=== PATIENT | female | born 1965 | race Caucasian/White ===

== ENCOUNTER → 2020-10-17 | Outpatient (CLI) | payer BC ==
[2013-10-11 10:22] VITALS: BP 133/93
[~2020-10-17] MED LIST: GABA600T7 PO; HYDR-2761 PO; LEVO50TA5 PO; METF500T16 PO; MONT10TA49 PO; SEMA1PEN3 SQ; SPIR100T4 PO
--- NOTE | 2020-10-20 15:21 | RAD ---
EXAM: MRI LEFT ANKLE/HINDFOOT DATE: 10/17/2020 11:31 AM CLINICAL INDICATION: Reason: rupture of left achilles tendon, initial encounter / Spl. Instructions: surgery scheduled 10/21 / History: COMPARISON: None. TECHNIQUE: Multiplanar, multisequence MR imaging of the left ankle was performed without IV contrast. FINDINGS: There is a full-thickness tear of the Achilles tendon, approximately 5.5 cm from the attachment with 2 cm gap between the principal components. There is herniation of the associated fat between the tend on fragments. Moderate edema is seen in this region. There is thickening of the remainder of the Achi lles tendon suggest background of tendinosis. There is mild increased signal and thickening of the peroneus longus posterior to the lateral malleol us, tendinosis. Peroneus brevis is intact. The medial flexor tendons at the ankle and extensor tendon s are intact, grossly normal in signal and morphology. No ankle joint or subtalar joint effusion. T1 marrow signal is preserved. No fracture or osteonecrosi s. Mild cystic change at the Achilles insertion. Mild thickening and increased signal of the plantar fascia at the calcaneal attachment. Ligaments: Medial deltoid stabilizers are intact. Lateral collateral stabilizing ligaments including the anterior talofibular ligament are intact. Anterior and posterior tibiofibular ligaments are intact. Spring ligament intact. Ligaments of the Sinus Tarsi are intact. Spaces/Places: Sinus Tarsi within normal limits, without mass lesion or edema pattern. Tarsal tunnel within normal limits, without mass lesion. Articular Cartilage/joint line: Articular cartilage of the ankle joint and subtalar joints are grossly intact. IMPRESSION: 1. Full-thickness tear Achilles tendon, approximately 5.5 cm from the attachment, with 2 cm gap betw een the principal components. Background of Achilles tendinosis suspected. 2. Mild peroneus longus tendinosis posterior to the lateral malleolus. 3. Thickening and increased signal of the plantar fascia, can be correlated with clinical manifestat ions of plantar fasciitis Electronically signed by: Dima Call MD (10/20/2020 3:19 PM) [id number]
== END ==
LOC: MRI 11:31
PROVIDERS: ATTEND Podiatrist
DX: S86.012A Strain of left Achilles tendon, initial encounter (principal); M25.472 Effusion, left ankle; M25.475 Effusion, left foot; X58.XXXA Exposure to other specified factors, initial encounter; Y93.89 Activity, other specified; Y92.89 Other specified places as the place of occurrence of the external cause; Y99.8 Other external cause status
CPT/HCPCS: 73721

== ENCOUNTER 2020-10-21 11:18 | Day surgery (SDC) | payer BC ==
[~2020-10-21] VITALS: Ht 165.1 cm; Wt 69.0 kg
[~2020-10-21 11:18] MED LIST changes: -GABA600T7 PO; -HYDR-2761 PO; +IV RINGERS,LACTATED 1000ML 1,000 ML IV SCH; +MORPHINE SULFATE 2 MG/ML INJ. IVP PRN; +PROCHLORPERAZINE 10 MG/2 ML VIAL. IVP PRN; +ceFAZolin SODIUM IV Push 1 GM VIAL. IVP PRN; +fentaNYL PF VIAL 100 MCG/2 ML VIAL IVP PRN
[2020-10-21 12:21] VITALS: BP 137/76
--- NOTE | 2020-10-21 12:24 | PDOC1 ---
History and Physical Date of Admission Date of Admission DATE: 10/21/20 TIME: 12:16 Identification/Chief Complaint Chief Complaint Left Achilles rupture Source Source: Chart review, Patient History of Present Illness History of Present Illness Patient 55-year-old female with past medical history DM2, hypothyroidism, on hormone replacement therapy, who presents to outpatient surgical clinic for repair of ruptured left Achilles tendon. She states that about 1 week ago she heard an audible "pop"with pain and difficulty ambulating since that time. She was diagnosed with a ruptured Achilles tendon. She was seen by Dr. Mills on outpatient basis and scheduled for surgical repair today. Currently she denies any fever, nausea, or significant pain. Past Medical History Past Medical History DM2, hypothyroidism Past Surgical History Past Surgical History Hysterectomy, tubal ligation, uterine ablation Family History Family History DM2, hypothyroidism Social History Smoke: No ALCOHOL: occassional Drugs: None Current Medications Current Medications Current Medications Fentanyl Citrate (Fentanyl 2ml Vial) 25 mcg PRN Q5MIN PRN IVP MILD PAIN 1-3; Start 10/21/20 at 06:00; Stop 10/22/20 at 05:59 Fentanyl Citrate (Fentanyl 2ml Vial) 50 mcg PRN Q5MIN PRN IVP MODERATE PAIN 4- 6; Start 10/21/20 at 06:00; Stop 10/22/20 at 05:59 Morphine Sulfate (Morphine Sulfate) 1 mg PRN Q10MIN PRN IVP SEVERE PAIN 7-10; Start 10/21/20 at 06:00; Stop 10/22/20 at 05:59 Ringer's Solution 1,000 ml @ 30 mls/hr Q24H IV ; Start 10/21/20 at 06:00; Stop 10/21/20 at 17:59 Hydromorphone HCl (Dilaudid) 0.5 mg PRN Q10MIN PRN IVP SEVERE PAIN 7-10, 2nd CHOICE; Start 10/21/20 at 06:00; Stop 10/22/20 at 05:59 Prochlorperazine Edisylate (Compazine) 5 mg PACU PRN PRN IVP NAUSEA, MRX1; Start 10/21/20 at 06:00; Stop 10/22/20 at 05:59 Cefazolin Sodium (Ancef) 1 gm 1X PREOP PRN IVP PRIOR TO PROCEDURE; Start 10/21/20 at 06:00; Stop 10/21/20 at 16:00 Active Scripts Active Reported Spironolactone 100 Mg Tablet 100 Mg PO DAILY Ozempic (Semaglutide) 1 Mg/0.75 Ml Pen.injctr 1 Mg SQ WEEKLY Metformin Hcl 500 Mg Tablet 1,000 Mg PO BIDWMEALS Levothyroxine Sodium 50 Mcg Tablet 50 Mcg PO DAILYAC Allergies Allergies: Coded Allergies: No Known Drug Allergies (Unverified , 10/20/20) ROS Review of System GENERAL: No history of weight change, weakness or fevers. SKIN: No bruising, hair changes or rashes. EYES: No blurred, double or loss of vision. NOSE AND THROAT: No history of nosebleeds, hoarseness or sore throat. HEART: Denies chest pain, denies palpitations. LUNGS: Denies cough, hemoptysis, wheezing or shortness of breath. GASTROINTESTINAL: Denies nausea, vomiting, abdominal pain. GENITOURINARY: Denies dysuria, frequency, urgency, hematuria. NEUROLOGIC: Denies history of numbness, tingling, tremor or weakness. PSYCHIATRIC: Denies anxiety, denies depression. ENDOCRINE: No history of heat or cold intolerance, polyuria or polydipsia. EXTREMITIES: Denies muscle weakness, joint pain, pain on walking or stiffness. Physical Exam Physical Exam General: Alert, Oriented X3, Cooperative, No acute distress HEENT: PERRLA, EOMI Lungs: Clear to auscultation, Normal air movement Heart: RRR, no murmurs Cardiovascular: S1, S2 Abdomen: Normal bowel sounds, Soft, No tenderness Extremities: Left lower extremity wrapped in bandage with dressings clean/dry/intact. Right lower extremity without clubbing, or cyanosis. Skin: No rashes, No significant lesion Neuro: Normal speech, Normal tone, Sensation intact Psych/Mental Status: Mental status NL, Mood NL Images Images PATIENT: JORJE BOYKIN ACCOUNT: [id number] : 1965 LOCATION: MRI AGE: 55 SEX: F EXAM STATUS: REG CLI ORD. PHYSICIAN: TIKI MILLS DPM REASON: rupture of left achilles tendon, initial encounter PROCEDURE: LOWER EXT JOINT WO LT EXAM: MRI LEFT ANKLE/HINDFOOT DATE: 10/17/2020 11:31 AM CLINICAL INDICATION: Reason: rupture of left achilles tendon, initial encounter / Spl. Instructions: surgery scheduled 10/21 / History: COMPARISON: None. TECHNIQUE: Multiplanar, multisequence MR imaging of the left ankle was performed without IV contrast. FINDINGS: There is a full-thickness tear of the Achilles tendon, approximately 5.5 cm from the attachment with 2 cm gap between the principal components. There is herniation of the associated fat between the tendon fragments. Moderate edema is seen in this region. There is thickening of the remainder of the Achilles tendon suggest background of tendinosis. There is mild increased signal and thickening of the peroneus longus posterior to the lateral malleolus, tendinosis. Peroneus brevis is intact. The medial flexor tendons at the ankle and extensor tendons are intact, grossly normal in signal and morphology. No ankle joint or subtalar joint effusion. T1 marrow signal is preserved. No fracture or osteonecrosis. Mild cystic change at the Achilles insertion. Mild thickening and increased signal of the plantar fascia at the calcaneal attachment. Ligaments: Medial deltoid stabilizers are intact. Lateral collateral stabilizing ligaments including the anterior talofibular ligament are intact. Anterior and posterior tibiofibular ligaments are intact. Spring ligament intact. Ligaments of the Sinus Tarsi are intact. Spaces/Places: Sinus Tarsi within normal limits, without mass lesion or edema pattern. Tarsal tunnel within normal limits, without mass lesion. Articular Cartilage/joint line: Articular cartilage of the ankle joint and subtalar joints are grossly intact. IMPRESSION: 1. Full-thickness tear Achilles tendon, approximately 5.5 cm from the attachment, with 2 cm gap between the principal components. Background of Achilles tendinosis suspected. 2. Mild peroneus longus tendinosis posterior to the lateral malleolus. 3. Thickening and increased signal of the plantar fascia, can be correlated with clinical manifestations of plantar fasciitis VTE Prophylaxis Ordered VTE Prophylaxis Devices: Yes VTE Pharmacological Prophylaxi: No Assessment/Plan Assessment/Plan Left Achilles tendon rupture DM2 Hypothyroidism Plan: Received preop prophylactic antibiotics. Scheduled for outpatient surgical repair of ruptured left Achilles tendon today. Currently denies any pain. Barring any surgical complications patient will likely discharge home today and follow-up with Dr. Mills and her PCP. Justifications for Admission Other Justification MERARI WOLF MD Oct 21, 2020 12:24
[2020-10-21] MEDS ORDERED: LIDOCAINE 1% PF 5 ML VIAL. ONE (12:51)
[2020-10-21] MEDS ORDERED: PROPOFOL 10 MG/ML (20ML) VIAL. IV ONE (12:51)
[2020-10-21] MEDS ORDERED: MIDAZOLAM HCL/PF 2 MG/2 ML VIAL. ONE (12:52)
[2020-10-21] MEDS ORDERED: ROCURONIUM 50 MG/5 ML VIAL. ONE (12:52)
[2020-10-21] MEDS ORDERED: fentaNYL PF VIAL 250 MCG/5 ML VIAL ONE (12:52)
[2020-10-21] MEDS ORDERED: GLYCOPYRROLATE 1 MG/5 ML VIAL. ONE (12:55)
[2020-10-21] MEDS ORDERED: NEOSTIGMINE METHYLSULFATE 5 MG/5 ML SYRINGE. ONE (12:56)
[2020-10-21] MEDS ORDERED: BUPIVACAINE-EPI 0.25%-1:200000 MPF 30 ML VIAL. ONE (13:26)
[2020-10-21] MEDS ORDERED: BUPIVACAINE MPF 0.25% 30 ML VIAL. ONE (13:26)
[2020-10-21] MEDS ORDERED: POVIDONE-IODINE 10% TOPICAL OINTMENT 28GM TUBE. TP ONE (15:21)
--- NOTE | 2020-10-21 15:57 | PDOC4 ---
OPERATIVE NOTE Date: Date: Oct 21, 2020 Pre-Op Diagnosis: Complete rupture of the left Achilles tendon approximately 3 cm proximal to the ankle joint Post-Op Diagnosis: Same as above Procedure Performed: Primary left Achilles tendon repair Surgeon: Tiki Mills D.P.M. Anesthesia Type: General Blood Loss: 5 cc Specimans Obtained: None Findings: Complete rupture of the Achilles tendon, approximately 3 cm proximal to the ankle joint. Minimal hematoma but mopped ends Achilles stumps. Preoperatively, positive Joy's test. After repair, negative Joy's test. Complications: None TIKI MILLS [facility] Oct 21, 2020 15:57
[2020-10-21] MEDS ORDERED: DEXTROSE 50% 25 GM / 50ML DISP.SYRIN. IV PRN (16:00)
[2020-10-21] MEDS ORDERED: ONDANSETRON PF 4 MG/2 ML VIAL. IVP PRN (16:00)
[2020-10-21] MEDS ORDERED: oxyCODONE/APAP 5/325 1 TAB TABLET PO ONE (16:00)
[2020-10-21] MEDS ORDERED: HYDROmorphone 2 MG/ML VIAL ONE (16:00)
[2020-10-21] MEDS ORDERED: POLYETHYLENE GLYCOL 3350 17 GM PACKET. PO PRN (16:00)
[2020-10-21] MEDS ORDERED: ACETAMINOPHEN 325 MG TABLET. PO ONE (16:00)
[2020-10-21] MEDS: HYDROmorphone 2 MG/ML VIAL IVP PRN ×4 (16:02→16:30)
[2020-10-21] MEDS ORDERED: GABA600T7 PO (16:07)
[2020-10-21] MEDS ORDERED: HYDR-2761 PO (16:07)
[2020-10-21] MEDS ORDERED: GABAPENTIN 100 MG CAPSULE. PO ONE (16:15)
[2020-10-21] MEDS ORDERED: HYDROcodone/APAP 5/325MG 1 TAB TABLET PO ONE (16:15)
--- NOTE | 2020-10-21 16:32 | RAD ---
Exam: Left ankle 3 views INDICATION: Post surgery TECHNIQUE: Frontal, lateral and oblique views of the left ankle Comparisons: None FINDINGS: Overlying splint material limits the evaluation of fine osseous detail. Bone mineralization is normal. No acute or healed fractures. Joint spaces are well-maintained. Soft t issues not well evaluated IMPRESSION: Several material limits the fine osseous detail. No acute displaced fracture identified. Electronically signed by: George Pablo MD (10/21/2020 4:29 PM) CHEL
[2020-10-21] MEDS ORDERED: fentaNYL PF VIAL 100 MCG/2 ML VIAL ONE (16:49)
[2020-10-21] MEDS: fentaNYL PF VIAL 100 MCG/2 ML VIAL IVP PRN ×2 (16:53→17:16)
[2020-10-21 17:25] VITALS: BP 105/65
--- NOTE | 2020-10-21 17:31 | PDOC4 ---
OPERATIVE NOTE Date: Date: Oct 21, 2020 Pre-Op Diagnosis: Complete rupture of the left Achilles tendon, approximately 3 cm proximal to the ankle joint. Post-Op Diagnosis: Same as above Procedure Performed: Left direct/primary Achilles tendon repair Surgeon: Tiki Mills DPM Anesthesia Type: General Blood Loss: 5 cc Specimans Obtained: None Findings: Complete rupture of the left Achilles tendon at the level of 3 cm proximal to the ankle joint. Preoperatively, positive Joy's test was noted. After surgery, negative Joy's test was noted. Complications: None Operative Note: Under mild sedation, patient was brought into the operating room and placed on supine position on the gurney. A standard timeout was performed to confirm patient's identity, procedure and procedure site. Following IV antibiotics and general anesthesia, a well-padded left thigh tourniquet was applied. Then patient was transferred to the operating table in a prone position with all the bony anatomies well-padded and protected. The left lower extremity was then scrubbed, prepped and draped using aseptic techniques. Using intraoperative x- ray, the ankle joint, posterior calcaneal tuber were marked. The rupture site was measured and marked at 3 cm proximal from the ankle joint. Then the left lower extremity was exsanguinated and pressure was set at 250 millimercury. The attention was directed to the posterior Achilles tendon near the rupture site through palpation and measurement preoperatively. A straight linear incision measured approximately 2 to 3 cm was placed over the rupture site. The incision was carried deep with care to protect and retract all the neurovascular bundles to the layer of peritenon. At this time, the 2 stumps of the Achilles tendon were visualized with mopped ends and mild hematoma. The gap was measured approximately 2-3 cm. Using an Allis clamp, the proximal Achilles stump was pulled into the incision site distally. Blunt dissection with a combination of straight hemostat, malleable were used 2 separate the peritenon from the Achilles tendon proximally. Then an Arthrex PARS jig was introduced to the proximal Achilles stump within the peritenon. The jig was carefully advanced proximally without any tendon or peritenon bunching. Then following the standard protocol, traversing 5 xpercutaneous pins were placed from medial to lateral followed by #2 FiberWire percutaneously introduced through the Achilles tendon substance proximally. Then the jig with was drawn distally and then the sutures were pulled into the surgical wound within the peritenon. Individual FiberWire was tested purchasing the proximal tendon stump adequately. 1 locking suture was achieved on both ends of the proximal Achilles tendon. At this time, satisfactory FiberWire purchase the proximal tendon stump was noted. Two full- thickness linear skin incisions, proximally 1 cm, were placed immediately medial and lateral at the Achilles insertion site. The incision was carried deep to the layer of periosteum layer with blunt dissection and care to retract and protect all the neurovascular bundles. Within these stab incisions, a 3.5 mm d rill was advanced into the calcaneal tuber with care to not to violate or penetrate subtalar joint or plantar calcaneal cortex. The drill holes were tapped with 4.75 mm tap to prepare for swivel lock anchors. Using a banana suture lasso, the proximal pars sutures were passed through the distal Achilles stump out of the distal stab incisions. two 4.75 mm swivel lock anchors were used to tension and secure the proximal pars fiber wires with ankle held near 35 degrees plantarly where the two Achilles stumps were well opposed. The extra fiber wires were cut and intraoperative palpation was negative for swivel lock anchor prominence posteriorly or plantarly. The surgical sites were irrigated with copious saline solution. The mopped ends at the rupture site were remodeled and then reapproximated with epitendinous suture, 3-0 Vicryl with care to not to compromise the FiberWire construct. The procedure site was anesthetized with 20 cc of 0.25% Marcaine plain. The skin was closed in layers with 4-0 Monocryl and 3-0 nylon. The procedure site was dressed with Betadine paint, and Xeroform, 4 x 4, ABD and immobilized in a well-padded Padron compression splint with a sugar tong while the ankle was held at gravity equinus. The tourniquet was released and adequate digital perfusion was noted. Patient tolerated the procedure and anesthesia well with neurovascular status intact and was transferred to PACU for continued recovery. Pending 3 view left ankle x-ray. TIKI MILLS DPM Oct 21, 2020 17:31
[2020-10-21] MEDS ORDERED: GABAPENTIN 100 MG CAPSULE. PO SCH (21:00)
[2020-10-22] MEDS ORDERED: SENNOSIDES/DOCUSATE 8.6/50MG TABLET. PO SCH (09:00)
== END 2020-10-21 17:55 | disposition home or self-care (01) ==
LOC: SURG 11:18
PROVIDERS: ATTEND Podiatrist
DX: S86.012A Strain of left Achilles tendon, initial encounter (principal); E11.9 Type 2 diabetes mellitus without complications; E03.9 Hypothyroidism, unspecified; Z79.899 Other long term (current) drug therapy; Z90.710 Acquired absence of both cervix and uterus; Z98.51 Tubal ligation status; Z98.890 Other specified postprocedural states; X58.XXXA Exposure to other specified factors, initial encounter; Y93.89 Activity, other specified; Y92.89 Other specified places as the place of occurrence of the external cause
CPT/HCPCS: 27650; 73610; 82962; A4209; A4930; A6253; A6449; A6450; C1713; J0690; J0780; J1170; J2250; J2704; J2710; J3010; J3490

== ENCOUNTER → 2021-02-03 | Outpatient (CLI) | payer BC ==
[~2021-02-03] MED LIST changes: +GABA600T7 PO; +HYDR-2761 PO; -IV RINGERS,LACTATED 1000ML 1,000 ML IV SCH; -MORPHINE SULFATE 2 MG/ML INJ. IVP PRN; -PROCHLORPERAZINE 10 MG/2 ML VIAL. IVP PRN; -ceFAZolin SODIUM IV Push 1 GM VIAL. IVP PRN; -fentaNYL PF VIAL 100 MCG/2 ML VIAL IVP PRN
== END ==
LOC: SPEC 12:08
PROVIDERS: ATTEND Podiatrist
DX: L89.620 Pressure ulcer of left heel, unstageable (principal)
CPT/HCPCS: 87071; 87075

== ENCOUNTER → 2021-02-18 | Outpatient (CLI) | payer BC ==
[~2021-02-18] MED LIST changes: +GADOTERATE 7.5 MMOL/15ML VIAL. IVP ONE
[2021-02-18 08:43] LABS: CREATININE 0.8 mg/dL (0.6-1.0); GFR 74.2
--- NOTE | 2021-02-18 11:42 | RAD ---
MRI STUDY OF THE LEFT ANKLE WITH AND WITHOUT CONTRAST Clinical indications: Draining wound from left ankle. Status post left Achilles tendon repair. TECHNIQUE: Noncontrast MRI sequences of the left ankle were performed in all 3 planes. A total of 12 cc of Clariscan was given intravenously. COMPARISON: Radiographic study of the left calcaneus dated February 03, 2021. FINDINGS: A paramagnetic susceptibility artifact of the calcaneus related to 2 surgical screws of the calcaneus secondary to Achilles tendon reattachment/repair. The attachment of the distal Achilles te ndon to the posterior aspect of the calcaneus remains intact. Just proximal to this attachment, there is edema and thickening of the distal Achilles tendon. There is a large tear of the proximal Rios s tendon defect measuring 4.3 cm vertically. There is edema of the musculotendinous junction of the A chilles tendon. The actual proximal extent of this edema cannot be completely seen in this study. The re is a 16 mm in vertical dimension fluid collection within the lower aspect of the defect with perip heral rim enhancement consistent with an abscess. There is overlying soft tissue edema to the skin in this area. No T1 marrow signal abnormality or T2 bone marrow edema or T1 cortical erosion is seen. T herefore, no osteomyelitis is seen. No fracture is seen. There is mild stress reaction bone marrow [place] of the posterior superior aspect of the calcaneus. Plantar aponeurosis is intact with edema. Sinu s tarsi is normal and talocalcaneal and cervical ligaments are intact. Small mortise ankle joint effu aniceto is seen. No osteochondral abnormality of the dome of talus or the tibial plafond is evident. The distal interosseous ligament and anterior/posterior tibiofibular ligaments are intact. There is a te ar of the anterior talofibular ligament. The posterior talofibular ligament is intact. The deltoid li gament and calcaneofibular ligament and spring ligament are intact. The flexor and peroneal and flexo r and extensor tendons are intact and no tenosynovitis is seen. IMPRESSION: Large recurrent Achilles tendon tear with chronic tendinopathy and edema. Apparent 1.6 cm abscess within the surgical defect cavity given history of wound. Anterior talofibular ligament tear. Electronically signed by: Severiano Arana MD (02/18/2021 11:40 AM) [place] [id number]
== END ==
LOC: MRI 11:10
PROVIDERS: ATTEND Podiatrist
DX: T81.89XD Other complications of procedures, not elsewhere classified, subsequent encounter (principal); S93.492A Sprain of other ligament of left ankle, initial encounter; X58.XXXD Exposure to other specified factors, subsequent encounter; X58.XXXA Exposure to other specified factors, initial encounter; Y93.89 Activity, other specified; Y92.89 Other specified places as the place of occurrence of the external cause; Y99.8 Other external cause status
CPT/HCPCS: 36415; 73723; 82565; A9575

== ENCOUNTER → 2021-02-20 | Outpatient (CLI) | payer BC ==
[~2021-02-20] MED LIST changes: -GADOTERATE 7.5 MMOL/15ML VIAL. IVP ONE
== END ==
LOC: SPEC 12:44
PROVIDERS: ATTEND Podiatrist
DX: T81.89XD Other complications of procedures, not elsewhere classified, subsequent encounter (principal); S86.012D Strain of left Achilles tendon, subsequent encounter; X58.XXXD Exposure to other specified factors, subsequent encounter
CPT/HCPCS: 87071; 87075

== ENCOUNTER 2021-03-31 06:00 | Day surgery (SDC) | payer BC ==
[~2021-03-31] VITALS: Ht 165.1 cm; Wt 67.0 kg
[~2021-03-31 06:00] MED LIST changes: +HYDROmorphone 2 MG/ML INJ. IVP PRN; +IV RINGERS,LACTATED 1000ML 1,000 ML IV SCH; +MORPHINE SULFATE 2 MG/ML INJ. IVP PRN; +PROCHLORPERAZINE 10 MG/2 ML VIAL. IVP PRN; +fentaNYL PF VIAL 100 MCG/2 ML VIAL IVP PRN
[2021-03-31] MEDS ORDERED: PROPOFOL 10 MG/ML (20ML) VIAL. IV ONE (07:00)
[2021-03-31] MEDS ORDERED: LIDOCAINE 2% PF 5 ML VIAL. ONE (07:00)
[2021-03-31] MEDS ORDERED: ceFAZolin 2GM PREMIX 2 GM/50 ML BAG IV ONE (07:00)
[2021-03-31] MEDS ORDERED: fentaNYL PF VIAL 100 MCG/2 ML VIAL ONE ×2 (07:01→10:04)
[2021-03-31] MEDS ORDERED: MIDAZOLAM HCL/PF 2 MG/2 ML VIAL. ONE (07:01)
[2021-03-31] MEDS ORDERED: ONDANSETRON PF 4 MG/2 ML VIAL. ONE (07:02)
[2021-03-31] MEDS ORDERED: SEVOFLURANE 61 TO 120 MINUTES. IH ONE (07:02)
[2021-03-31] MEDS ORDERED: DEXAMETHASONE SOD PHOS 4 MG/ML VIAL ONE (07:02)
[2021-03-31] MEDS ORDERED: PHENYLEPHRINE 10 MG/ML VIAL. ONE (07:10)
[2021-03-31] MEDS ORDERED: INSULIN LISPRO 100 UNIT/ML 3ML VIAL for OP,RR ONLY. SQ PRN (07:15)
[2021-03-31] MEDS ORDERED: ROCURONIUM 50 MG/5 ML VIAL. ONE (07:38)
--- NOTE | 2021-03-31 07:55 | PDOC1 ---
History and Physical Date of Service: DOS: DATE: 03/31/21 TIME: 07:20 Chief Complaint: Chief Complain: Delayed surgical skin healing on the left ankle History of Present Illness: HPI: 55-year-old female with past medical history of diabetes mellitus type 2, hypertension, hypothyroidism who presents to outpatient surgery for a nonhealing surgical wound. Patient states that she had surgery on her left ankle sometime in December last year. Patient currently does not endorse any active pain or bleeding. Denies any fevers, chest pain, abdominal pain, diarrhea or polyuria or polydipsia. Last hemoglobin A1c she could member was 5.7 Allergies: Allergies: Coded Allergies: No Known Drug Allergies (Unverified , 03/31/21) Family History: Family History: Reviewed with no relevant findings in the chart Social History: Social History: Denies alcohol, tobacco or drug abuse. Current Medications: Current Medications Current Medications Fentanyl Citrate (Fentanyl 2ml Vial) 25 mcg PRN Q5MIN PRN IVP MILD PAIN 1-3; Start 03/31/21 at 06:00; Stop 04/01/21 at 05:59 Fentanyl Citrate (Fentanyl 2ml Vial) 50 mcg PRN Q5MIN PRN IVP MODERATE PAIN 4- 6; Start 03/31/21 at 06:00; Stop 04/01/21 at 05:59 Morphine Sulfate (Morphine Sulfate) 1 mg PRN Q10MIN PRN IVP SEVERE PAIN 7-10; Start 03/31/21 at 06:00; Stop 04/01/21 at 05:59 Ringer's Solution 1,000 ml @ 30 mls/hr Q24H IV Last administered on 03/31/21at 06:31; Start 03/31/21 at 06:00; Stop 03/31/21 at 17:59 Hydromorphone HCl (Dilaudid) 0.5 mg PRN Q10MIN PRN IVP SEVERE PAIN 7-10, 2nd CHOICE; Start 03/31/21 at 06:00; Stop 04/01/21 at 05:59 Prochlorperazine Edisylate (Compazine) 5 mg PACU PRN PRN IVP NAUSEA, MRX1; Start 03/31/21 at 06:00; Stop 04/01/21 at 05:59 Cefazolin Sodium/ Dextrose 50 ml @ 100 mls/hr 1X PREOP PRN IV PRIOR TO PROCEDURE; Start 03/31/21 at 06:00; Stop 03/31/21 at 18:00 Insulin Human Lispro (HumaLOG VIAL for OP,RR ONLY) 0-10 units PRN Q1HR PRN SQ PER PROTOCOL; Start 03/31/21 at 07:15; Stop 04/01/21 at 07:14 Active Scripts Active Reported Spironolactone 100 Mg Tablet 100 Mg PO DAILY Ozempic (Semaglutide) 1 Mg/0.75 Ml Pen.injctr 1 Mg SQ WEEKLY Metformin Hcl 500 Mg Tablet 1,000 Mg PO BIDWMEALS Levothyroxine Sodium 50 Mcg Tablet 50 Mcg PO DAILYAC ROS: Review of Systems Review of System REVIEW OF SYSTEMS: GENERAL: Denies weakness SKIN: No bruising, hair changes or rashes. EYES: No blurred, double or loss of vision. NOSE AND THROAT: No history of nosebleeds, hoarseness or sore throat. HEART: No history of palpitations, chest pain or shortness of breath on exertion. LUNGS: Denies cough, hemoptysis, wheezing or shortness of breath. GASTROINTESTINAL: Denies changes in appetite, nausea, vomiting, diarrhea or constipation. GENITOURINARY: No history of frequency, urgency, hesitancy or nocturia. NEUROLOGIC: Denies history of numbness, tingling, or tremor. PSYCHIATRIC: No history of panic, anxiety or depression. ENDOCRINE: No history of heat or cold intolerance, polyuria or polydipsia. EXTREMITIES: Denies joint pain, pain on walking or stiffness. Physical Exam: Vital Signs: Vital Signs Date Time Temp Pulse Resp B/P (MAP) Pulse Ox O2 Delivery O2 Flow Rate FiO2 03/31/21 06:29 98.1 111 20 147/93 100 98.1 Physcial Exam: General: Well developed, well nourished, no acute distress, well appearing HEENT: Pupils equally round and reactive to light, EOMI, no discharge, normal conjunctiva Neck: Supple, no nuchal rigidity, no JVD, trachea midline, no tenderness Cardiac: RRR, no murmurs, no gallops, no rubs Chest/Lungs: CTAB, no wheeze, no rhonchi, no crackles Abdomen: soft, non-distended, no guarding, no peritoneal signs, non-tender Back: No tenderness Extremities: no edema, pulses intact, non-tender,capillary refill <3 sec bilateral upper and lower extremities. Left lower extremity in dressings. Neuro: Alert and oriented x 4, no focal deficits, normal speech Labs: Labs: Laboratory Tests Test 03/31/21 06:29 Glucose (Fingerstick) 101 mg/dL (70-99) Laboratory Tests Test 03/31/21 06:29 Glucose (Fingerstick) 101 mg/dL (70-99) Images: Images PROCEDURE: LOWER EXT JOINT WO/W LEFT MRI STUDY OF THE LEFT ANKLE WITH AND WITHOUT CONTRAST Clinical indications: Draining wound from left ankle. Status post left Achilles tendon repair. TECHNIQUE: Noncontrast MRI sequences of the left ankle were performed in all 3 planes. A total of 12 cc of Clariscan was given intravenously. COMPARISON: Radiographic study of the left calcaneus dated February 03, 2021. FINDINGS: A paramagnetic susceptibility artifact of the calcaneus related to 2 surgical screws of the calcaneus secondary to Achilles tendon r eattachment/repair. The attachment of the distal Achilles tendon to the posterior aspect of the calcaneus remains intact. Just proximal to this attachment, there is edema and thickening of the distal Achilles tendon. There is a large tear of the proximal Achilles tendon defect measuring 4.3 cm vertically. There is edema of the musculotendinous junction of the Achilles tendon. The actual proximal extent of this edema cannot be completely seen in this study. There is a 16 mm in vertical dimension fluid collection within the lower aspect of the defect with peripheral rim enhancement consistent with an abscess. There is overlying soft tissue edema to the skin in this area. No T1 marrow signal abnormality or T2 bone marrow edema or T1 cortical erosion is seen. Therefore, no osteomyelitis is seen. No fracture is seen. There is mild stress reaction bone marrow edema of the posterior superior aspect of the calcaneus. Plantar aponeurosis is intact with edema. Sinus tarsi is normal and talocalcaneal and cervical ligaments are intact. Small mortise ankle joint effusion is seen. No osteochondral abnormality of the dome of talus or the tibial plafond is evident. The distal interosseous ligament and anterior/posterior tibiofibular ligaments are intact. There is a tear of the anterior talofibular ligament. The posterior talofibular ligament is intact. The deltoid ligament and calcaneofibular ligament and spring ligament are intact. The flexor and peroneal and flexor and extensor tendons are intact and no tenosynovitis is seen. IMPRESSION: Large recurrent Achilles tendon tear with chronic tendinopathy and edema. Apparent 1.6 cm abscess within the surgical defect cavity given history of wound. Anterior talofibular ligament tear. Electronically signed by: Severiano Arana MD (02/18/2021 11:40 AM) [id number] Assessment/Plan Assessment/Plan Patient will be taken to the OR today for left Achilles tendon abscess repair with Dr. Mckee. History of diabetes mellitus type 2 History of hypertension History of hypothyroidism Shay score of less than 0.1% Resume all home medications after surgery. Please call hospitalist service for any questions. Justifications for Admission Other Justification STEPHEN SWIFT MD Mar 31, 2021 07:55
[2021-03-31] MEDS ORDERED: BUPIVACAINE MPF 0.5% 30 ML VIAL. IJ ONE (08:07)
[2021-03-31] MEDS ORDERED: ePHEDrine PF IN SALINE 50 MG/10 ML SYRINGE. IV ONE (08:23)
[2021-03-31] MEDS ORDERED: BUPIVACAINE MPF 0.5% 30 ML VIAL. ONE (08:46)
[2021-03-31] MEDS ORDERED: BUPIVACAINE MPF 0.25% 30 ML VIAL. ONE (08:46)
--- NOTE | 2021-03-31 09:38 | PDOC4 ---
OPERATIVE NOTE Date: Date: Mar 31, 2021 Pre-Op Diagnosis: Diabetic foot ulcer, sterile abscess along the Achilles surgical site from prior repair, left leg Post-Op Diagnosis: Same as above Procedure Performed: Left Achilles tendon incision and drainage, retubularization with 2-0 Prolene, and primary closure of the skin Surgeon: Tiki Mills DPM Anesthesia Type: General anesthesia Blood Loss: 5 cc Specimans Obtained: Deep tissue culture before and after washout and sent for Gram stain, culture and sensitivity, aerobes and anaerobes Findings: Fragile skin envelope at the posterior Achilles wound site measures approximately 2 x 2 millimeter. Upon deep tissue exploration, there is no pocket of abscess, proximal tracking or undermining. However, around the exposed FiberWire that was superficial to the Achilles tendon, there was mild to moderate degenerated and inflammatory Achilles tendon tissue without significant liquefication or any purulence. After FiberWire removal, the Achilles tendon was found structurally sound without any gapping. Joy test was negative. Complications: None Operative Note: Under mild sedation, patient was brought into the operating room and placed on the operating table in the supine position. A formal timeout was performed to confirm patient's identity, procedure and procedure site. Following IV general anesthesia and preoperative antibiotics, a well-padded left thigh tourniquet was applied. Patient was then positioned prone on the operating table with all the osseous prominence well-padded. The left lower extremity was then prepped, scrubbed and draped using aseptic techniques. The left lower extremity was then exsanguinated and an pressure was inflated to 250 mmHg. Using intraoperative x-ray, the ankle level was identified at the Achilles level. Based on MRI findings, the heterogenicity along the Achilles tendon was found 2 cm proximal to ankle joint 1 cm distal to ankle joint. However clinically, the wound was measured at 3 cm proximal to the ankle joint. Upon manual exsanguination, minimal serous sanguinous fluid was noted from the inferior aspect of the skin wound. Then the incision was made just medial to the midline of the Achilles tendon, spending from 3 cm proximal to 2 cm distal relative to the ankle joint. The incision was made full-thickness. The peritenon/Achilles tendon was carefully identified and from the subcutaneous layer with a combination of sharp and blunt dissection with care to protect and retract all the neurovascular bundles. The Achilles tendon was also blunt elevated from the surrounding scar tissue with finger dissection. At this time, we noted the exposed fiber wires, that are superficial to the Achilles tendon was surrounded by softer, degenerated and yellow Achilles tendon tissue without any pocket of purulence or abscess. The Achilles tendon was also incised linearly and centrally to further investigate and visualize the FiberWire's., at this time, the sutures were found under minimal to no tension and therefore not providing any structural support or tension to the Achilles tendon. The sutures were removed in toto from the proximal distal extent of the surgical wound. Then additional wound inspection was negative for any suture material. Deep tissue culture was collected before washout and sent for Gram stain, aerobes and anaerobes, culture and sensitivity. The degenerated tissue was excised with a #15 blade and a rongeur. The surgical site was irrigated with 1 L of saline solution. Wound inspection was negative for any yellow or degenerated tissue, purulence, or abscess. Deep tissue culture was collected and sent for Gram stain, anaerobes, aerobes, culture and sensitivity. The Achilles tendon was retubularized with 2-0 Prolene. Per literature, Prolene is most innate and does not inflected inflammatory reactions. The running sutures were buried at the proximal and distal ends of the repair. Joy test was noted negative. The inflamed/fragile skin envelope at the chronic wound site was excised to healthy margin. To reduce to skin tension especially given the chronicity of the wound, hemiguard suture device was applied at the proximal incision site where the skin was found most fragile. Then the surgical skin margins were brought together with 2-0 nylon through the hemiguard device. Then 4 Monocryl and 4-0 nylon were used to reapproximate the skin under minimal tens ion. Tourniquet was deflated and adequate perfusion was noted to the skin flaps and wound margins. 5 cc of accorded percent Marcaine plain was infiltrated to the distal Achilles near the surgical site for postoperative anesthesia. The skin was dressed with Arthrex jumpstart, 4 x 4 gauze. The left lower extremity was immobilized in a well-padded Padron compression splint with ankle held near gravity equinus. Adequate digital perfusion was noted afterwards. Patient tolerated the anesthesia and procedure well with vital signs stable and neurovascular status intact. Patient was then transferred to PACU for continuous recovery. TIKI MILLS DPM Mar 31, 2021 09:38
[2021-03-31] MEDS ORDERED: GABAPENTIN 100 MG CAPSULE. PO ONE (09:45)
[2021-03-31] MEDS ORDERED: ACETAMINOPHEN 325 MG TABLET. PO ONE (09:45)
[2021-03-31] MEDS ORDERED: oxyCODONE/APAP 5/325 1 TAB TABLET PO ONE (09:45)
[2021-03-31] MEDS: fentaNYL PF VIAL 100 MCG/2 ML VIAL IVP PRN ×2 (10:11→10:27)
[2021-03-31 11:10] VITALS: BP 129/77
[2021-03-31] MEDS ORDERED: SUCCINYLCHOLINE 200 MG/10 ML VIAL. ONE (14:03)
== END 2021-03-31 11:55 | disposition home or self-care (01) ==
LOC: SURG 06:00
PROVIDERS: ATTEND Podiatrist
DX: T81.89XA Other complications of procedures, not elsewhere classified, initial encounter (principal); E11.621 Type 2 diabetes mellitus with foot ulcer; E03.9 Hypothyroidism, unspecified; Z98.51 Tubal ligation status; Z90.710 Acquired absence of both cervix and uterus; Z98.890 Other specified postprocedural states; Z79.84 Long term (current) use of oral hypoglycemic drugs; Z72.89 Other problems related to lifestyle; Z88.8 Allergy status to other drugs, medicaments and biological substances
CPT/HCPCS: 27603; 82962; 87075; A4930; A6253; A6402; A6449; A6450; J0330; J0690; J1100; J2250; J2370; J2405; J2704; J3010; J3490